=== PATIENT | male | born 1980 | race Caucasian/White ===

== ENCOUNTER 2017-04-25 07:15 | Day surgery (SDC) | payer BC ==
[~2017-04-25 07:15] MED LIST: Midazolam 1 MG/ML 2 ML SDV ONE; fentaNYL 100 MCG/2 ML SDV ONE
[2017-04-25] MEDS ORDERED: Dextrose 5%-0.45% NaCl 1,000 ML IV SCH (07:30)
[2017-04-25] MEDS ORDERED: fentaNYL 100 MCG/2 ML SDV IV ONE ×4 (07:50→15:40)
[2017-04-25] MEDS ORDERED: Midazolam 1 MG/ML 2 ML SDV IV ONE ×7 (07:51→15:40)
[2017-04-25 10:06] VITALS: BP 108/66
--- NOTE | 2017-04-25 10:39 | OR ---
DATE: 04/25/2017 PROCEDURE: Total colonoscopy and cold snare polypectomy. INSTRUMENT USED: PCF-H180 AL Olympus video colonoscope. PREMEDICATIONS: Fentanyl 125 mcg intravenous, Versed 4 mg intravenous, nasal 2 L O2 cannula. The procedure was done under pulse oximetry, BP recording, and monitoring tech. INDICATION: The patient with high-risk family history for colon cancer. Colonoscopic examination is done for detection of any polypoid lesions and removal. Endoscopic hemostasis therapy if needed. DESCRIPTION OF PROCEDURE: Initial rectal exam was unremarkable. Rigid anoscopy was normal. The colonoscope was passed with ease. In the proximal rectum, a 3-mm sized benign-appearing polyp was noted. Photograph was taken. Cold snare polypectomy was done. The tissue was retrieved and sent for histopathology. The scope was passed with ease up to the ileocecal area. Photographs were taken of the normal- appearing cecum identified by landmarks of appendiceal orifice and double-bulged ileocecal folds. No bleeding was noted from any of the visualized areas at the commencement of the examination. No stricture. No vascular ectasia. No large isolated ulcerations seen. No evidence of diffuse inflammatory bowel disease in the form of friability, contact bleeding, or ulcerations. Probing the proximal sides of folds and flexures, using adequate distention and clearing up the stool material, withdrawal of the scope was made. Cecum to rectum time was over 6 minutes. No bleeding was noted from any of the visualized areas at the completion of examination. IMPRESSION: Diminutive rectal polyp. The patient tolerated the procedure well. [facility] /[id number]
== END 2017-04-25 10:20 | disposition home or self-care (01) ==
LOC: DL.ENDO 07:15
PROVIDERS: ATTEND Internal Medicine Gastroenterology
DX: Z12.11 Encounter for screening for malignant neoplasm of colon (principal); Z80.0 Family history of malignant neoplasm of digestive organs; K62.1 Rectal polyp; E66.9 Obesity, unspecified
CPT/HCPCS: 45385; J2250; J3010; J7042

== ENCOUNTER 2024-09-04 06:37 | Day surgery (SDC) | payer BC ==
[~2024-09-04 06:37] MED LIST changes: +Midazolam 1 MG/ML 2 ML SDV IV ONE; +fentaNYL 100 MCG/2 ML SDV IV ONE
[2024-09-04] MEDS: Dextrose 5%-0.45% NaCl 1,000 ML IV SCH (07:00)
[2024-09-04] MEDS: fentaNYL 100 MCG/2 ML SDV IV ONE ×2 (07:43→07:44)
[2024-09-04] MEDS: Midazolam 1 MG/ML 2 ML SDV IV ONE ×6 (07:44→07:54)
[2024-09-04 09:01] VITALS: BP 106/70; PULSE 64
== END 2024-09-04 09:32 | disposition home or self-care (01) ==
LOC: DL.ENDO 06:37
PROVIDERS: ATTEND Internal Medicine Gastroenterology
DX: Z12.11 Encounter for screening for malignant neoplasm of colon (principal); K63.5 Polyp of colon; Z80.0 Family history of malignant neoplasm of digestive organs; G47.33 Obstructive sleep apnea (adult) (pediatric); E66.9 Obesity, unspecified; Z68.31 Body mass index [BMI] 31.0-31.9, adult
CPT/HCPCS: 45385; J2250; J3010; J7799

== ENCOUNTER 2025-03-09 06:30 | Day surgery (SDC) | payer BC ==
[~2025-03-09 06:30] MED LIST changes: +Dextrose 5%-0.45% NaCl 1,000 ML IV SCH; -Midazolam 1 MG/ML 2 ML SDV IV ONE; -Midazolam 1 MG/ML 2 ML SDV ONE; -fentaNYL 100 MCG/2 ML SDV IV ONE; -fentaNYL 100 MCG/2 ML SDV ONE
[2025-03-09] MEDS: Lactated Ringers 1,000 ML IV SCH (07:00)
[2025-03-09] MEDS ORDERED: Propofol 200 MG/20 ML SDV ONE (07:07)
[2025-03-09 08:16] VITALS: BP 117/73; PULSE 55
== END 2025-03-09 09:02 | disposition home or self-care (01) ==
LOC: DL.ENDO 06:30
PROVIDERS: ATTEND Internal Medicine Gastroenterology
DX: K31.84 Gastroparesis (principal)
CPT/HCPCS: 43239; J7120

== ENCOUNTER 2025-05-12 06:03 | Day surgery (SDC) | payer BC ==
[~2025-05-12 06:03] MED LIST changes: -Dextrose 5%-0.45% NaCl 1,000 ML IV SCH; +Propofol 200 MG/20 ML SDV ONE
[2025-05-12] MEDS ORDERED: Lactated Ringers 1,000 ML IV ONE (06:04)
[2025-05-12] MEDS ORDERED: Propofol 200 MG/20 ML SDV IV ONE (06:04)
[2025-05-12] MEDS: Lactated Ringers 1,000 ML IV SCH (06:36)
[2025-05-12 09:01] VITALS: BP 116/72; PULSE 52
== END 2025-05-12 09:20 | disposition home or self-care (01) ==
LOC: DL.ENDO 06:03
PROVIDERS: ATTEND Internal Medicine Gastroenterology
DX: Q40.2 Other specified congenital malformations of stomach (principal); K80.20 Calculus of gallbladder without cholecystitis without obstruction; I50.9 Heart failure, unspecified; E66.9 Obesity, unspecified; Z68.29 Body mass index [BMI] 29.0-29.9, adult
CPT/HCPCS: 00731; 43239; J2003; J2704; J7120